=== PATIENT | male | born 1945 | race Caucasian/White ===

== ENCOUNTER 2024-10-11 17:02 | Emergency (ER) | payer MEDICARE, BC, SELFPAY ==
[2024-10-11 17:09] VITALS: BP 86/58
--- NOTE | 2024-10-11 17:11 | ED.GENMED ---
ED Provider Triage
-
Patient seen by provider in Triage?: Seen in Triage
Attestation: A medical screening examination has been initiated by a qualified medical provider. Based on the assessment performed at this time, it has been determined that an emergent medical condition may exist and the patient has been informed
that further medical evaluation and possible additional diagnostic testing may be needed.
HPI: 79-year-old male presenting the ER for evaluation of flulike symptoms that began last night, Tmax of 101. Today symptoms worse, lightheaded and minimal p.o. intake. checked him for COVID at home with COVID test coming back negative. No
known sick contacts. Patient found to be hypotensive in triage. Labs ordered. Normal saline ordered. Patient otherwise in no acute distress.
GENERAL: Alert , in no apparent distress
EYE: No visual abnormalities.
NECK: Trachea midline
ENT: No visible abnormalities.
LUNGS: No acute respiratory distress
NEUROLOGICAL: Alert and oriented
SKIN: Skin intact. No visible changes.
MUSCULOSKELETAL: Moving extremities normally
PSYCH: Normal and appropriate interaction.
This is a medical evaluation conducted in person to initiate diagnostic evaluation and provide initial therapeutics. Please see further documentation by the treating clinician.
History of Present Illness
General
Chief Complaint: Cold/Flu/URI Symptoms
Source: patient and spouse
Time Seen by Provider: 10/11/24 19:12
History of Present Illness
History of Present Illness:
79-year-old male with past medical history of hypertension hyperlipidemia presenting to the emergency department for evaluation of fever, chills, cough, body aches, generalized fatigue and lightheadedness. Temperature last night of 101 was Tmax,
spouse is given 2 separate doses of Tylenol today. No known sick contacts or recent travel or recent antibiotics. Patient otherwise denies any abdominal pain, nausea, vomiting, bowel changes or urinary symptoms.
Past History
Past History
ED Past Medical History: HTN, Hypercholesterolemia and Other (BPH)
ED Past Surgical History: Orthopedic and Tonsilectomy
Social History
Tobacco: Non-smoker
Alcohol: None
Drug: None
Personal:
Living: with family
Review of Systems
Review of Systems
All Other Systems: ROS reviewed and negative except as documented in HPI and ROS
Phy Exam
Physical Exam
Physical Exam:
GENERAL: Alert , in no apparent distress
EYE: conjunctiva clear
Head: Normocephalic atraumatic
NECK: Supple,
ENT: mmm.
LUNGS: no acute respiratory distress
NEUROLOGICAL: Alert and oriented
SKIN: Warm and dry, skin intact.
MUSCULOSKELETAL: well perfused.
PSYCH: Normal and appropriate interaction.
Scores
Heart Failure Risk
Heart Failure Risk Score: Not Applicable
Heart Score for Chest Pain Patients
STEMI patient?: Not applicable
Withdrawal Assessment of Alcohol
Withdrawal Assessment Completed?: Not applicable
Sepsis
Sepsis Screening
Sepsis Assessment: Sepsis Ruled Out
Sepsis Screen
Sepsis Screen: Sepsis Ruled Out
Date: 10/11/24
Time: 20:47
Course
Orders/Labs/Results
Orders:
Orders
10/11/24 17:11
CR Chest - 2 Views Urgent
Comment:
Reason For Exam: cough, fever
10/11/24 17:12
0.9% Sodium Chloride 1000 ml [Nss] 1,000 ml IV BOLUS
10/11/24 17:23
Basic Metabolic Panel Urgent
COVID-19 Antigen Urgent
Source: Nasal Swab
Complete Blood Count/With Diff Urgent
Lactic Acid Q4H
Comment: CANCEL 2nd LACTIC ACID IF 1st LACTIC ACID IS LESS THAN 2
Influenza A+B Rapid Molecular Urgent
SYLVIA Source: Nasal Swab
Specimen Description:
Abnormal Lab Results
10/11/24
17:23
Absolute Monos (auto) 1.1 H 10^3/uL
(0.1-0.6)
Monocytes % 15.4 H %
(1.7-9.3)
Sodium 134 L mmol/L
(135-145)
10/11/24 17:23
10/11/24 17:23
Vital Signs
Initial and Last Documented VS:
Initial Vital Signs
Temp Pulse Resp BP Pulse Ox
98.9 F 76 20 86/58 96
10/11/24 17:09 10/11/24 17:09 10/11/24 17:09 10/11/24 17:09 10/11/24 17:09
Last Documented Vital Signs
Temp Pulse Resp BP Pulse Ox
98.9 F 76 20 128/69 99
10/11/24 17:09 10/11/24 19:18 10/11/24 19:18 10/11/24 19:18 10/11/24 19:18
MDM/Problems Addressed
Differential Diagnosis Includes:
COVID, flu, other viral etiology, pneumonia, dehydration/electrolyte derangement
MDM/Problems Addressed:
79-year-old male presenting the emergency department for evaluation of flulike symptoms since last night. Found to be hypotensive in triage. Labs, COVID and flu testing were ordered in triage and patient ultimately tested positive for influenza A.
He received 1 L of normal saline with significant improvement of blood pressure and is now normotensive on multiple different rechecks. Will prescribe Tamiflu to the patient. Supportive care advised. Both patient and are aware of return
precautions. Patient otherwise stable for discharge home.
Chronic conditions affecting care: HTN
*Pulse Oximetry
Patient hypoxic: no
*Critical Care Note
Total Time (30-74mins, 75-104mins- exclusive of procedures): Not Applicable
ED Attending Note
-
Portions of this chart may have been created with voice recognition software.� Occasional wrong word or��sound alike� substitutions may have occurred due to the inherent limitations of voice recognition software.
Discharge Plan
Departure
Patient Disposition: Home (Routine Discharge)
Date of Disposition: 10/11/24
Time of Disposition: 19:13
Patient with high blood pressure during this ER visit?: Yes
Discharge Problem:
Influenza A
Instructions: Flu in adults - Discharge instructions
Prescriptions:
New
oseltamivir [Tamiflu] 75 mg capsule
75 mg PO BID 5 Days Qty: 10 0RF
Interventions
Interventions:
*Risk Screen - Suicide Last Done: 10/11/24 17:14
*Nursing Disposition Last Done: 10/11/24 19:23
ED- Pulmonary Assessment Last Done: 10/11/24 19:22
Discharge Date and Time
Discharge Date/Time: 10/11/24 19:26
Print Language: BELARUSIAN
[2024-10-11] MEDS: NSS 1000 IV (17:33)
[2024-10-11 17:34] LABS: % Basophils 0.7 % (0-2); % Eosinophils 1.6 % (0-6); % Immature Granulocytes 0.4 % (0-0.5); % Lymphocytes 21.4 % (20.5-51.1); % Monocytes 15.4 % (1.7-9.3); % Neutrophils 60.5 % (42.2-75.2); Absolute Basophils 0.1 10^3/uL (0-0.2); Absolute Eosinophils 0.1 10^3/uL (0-0.7); Absolute Lymphocytes 1.5 10^3/uL (1.2-3.4); Absolute Monocytes 1.1 10^3/uL (0.1-0.6); Absolute Neutrophils 4.2 10^3/uL (1.4-6.5); Hematocrit 43.3 % (39.0-52.0); Hemoglobin 15.2 g/dL (13.0-18.0); Mean Corp Hgb Conc. 35.1 g/dL (33.0-37.0); Mean Corpuscular Volume 88.4 fL (80.0-94.0); Nucleated Red Blood Cells % 0 % (-); Platelet Count 184 10^3/uL (130-400); Red Cell Dist. Width 14.2 % (11.5-14.5); White Blood Cell Count 6.9 10^3/uL (4.8-10.8)
[2024-10-11 17:53] LABS: Blood Urea Nitrogen 18 mg/dl (9-20); Calcium 8.4 mg/dl (8.4-10.2); Carbon Dioxide 29 mmol/L (22-30); Chloride 98 mmol/L (98-107); Glucose 99 mg/dl (70-99); Potassium 3.7 mmol/L (3.5-5.1); Sodium 134 mmol/L (135-145); eGFR > 60.00
[2024-10-11 17:55] VITALS: BP 133/63
[2024-10-11 18:11] LABS: Lactic Acid 0.9 mmol/L (0.7-2.0)
[2024-10-11 18:15] LABS: COVID-19 Antigen Negative (Negative)
[2024-10-11 19:18] VITALS: BP 128/69
== END 2024-10-11 19:26 | disposition home or self-care (01) ==
LOC: EMR 17:02
PROVIDERS: Physician Assistant Medical; EMERGENCY PHYSICIAN Emergency Medicine; FAMILY PHYSICIAN Internal Medicine
DX: J10.1 Influenza due to other identified influenza virus with other respiratory manifestations (principal); I10 Essential (primary) hypertension
CPT/HCPCS: 99284; 71046; 80048; 83605; 85025; 87502; 87811

== ENCOUNTER → 2025-05-04 09:31 | Outpatient (REF) | payer MEDICARE, BC, SELFPAY | LOC: HWRAD 09:31 | PROVIDERS: ATTENDING PHYSICIAN Internal Medicine | DX: R26.89 Other abnormalities of gait and mobility (principal); R26.9 Unspecified abnormalities of gait and mobility; R22.0 Localized swelling, mass and lump, head; R68.89 Other general symptoms and signs; Z91.81 History of falling; R60.0 Localized edema | CPT/HCPCS: 70450; 71046 ==